=== PATIENT | male | born 1940 | race Caucasian/White ===

== ENCOUNTER 2016-03-16 09:29 | Outpatient (CLI) | payer MEDICARE ==
[2016-03-16 11:05] LABS: ALT (SGPT) 15 U/L (0-55); AST (SGOT) 17 U/L (5-34); Alkaline Phosphatase 30 U/L (40-150); Anion Gap 11 mmol/L (10-20); BUN (Urea Nitrogen) 14 mg/dL (8.4-25.7); Bilirubin, Total 1.1 mg/dL (0.2-1.2); Calc. Creatinine Clearance 0 mL/min (70-130); Calcium 9.6 mg/dL (7.8-10.44); Carbon Dioxide 30 mmol/L (23-31); Chloride 102 mmol/L (98-107); Estimated GFR-MDRD Greater than 90; Globulin 2.8 g/dL (2.4-3.5); LDL Cholesterol, Calculated 125 mg/dL; Protein, Total 7.3 g/dL (5.8-8.1)
[2016-03-16 11:08] LABS: #Basophils 0.1 thou/uL (0.0-0.2); #Eosinphils 0.1 thou/uL (0.0-0.7); #Lymphocytes 2.1 thou/uL (1.20-3.40); #Monocytes 0.6 thou/uL (0.11-0.59); #Neutrophils 4.1 thou/uL (1.40-6.50); %Basophils 0.9 % (0.0-1.0); %Eosinophils 2.1 % (0.0-10.0); %Monocytes 8.8 % (0.0-10.0); Hematocrit 47.3 % (42.0-52.0); Mean Platelet Volume 7.2 fL (7.4-10.4); Red Blood Cell (RBC) Count 5.03 mill/uL (4.70-6.10); White Blood Cell (WBC) Count 6.9 thou/uL (4.8-10.8)
== END 2016-03-16 09:30 | disposition home or self-care (01) ==
LOC: BURLAB 09:29
PROVIDERS: ATTEND Family Medicine
DX: E78.5 Hyperlipidemia, unspecified (principal); N40.0 Benign prostatic hyperplasia without lower urinary tract symptoms; J44.9 Chronic obstructive pulmonary disease, unspecified
CPT/HCPCS: 36415; 80053; 80061; 84153; 84443; 85025

== ENCOUNTER 2017-03-22 08:34 | Emergency (ER) | payer MEDICARE ==
[2017-03-22 09:48] LABS: #Basophils 0.1 thou/uL (0.0-0.2); #Monocytes 0.6 thou/uL (0.11-0.59); #Neutrophils 4.8 thou/uL (1.40-6.50); %Basophils 1.6 % (0.0-1.0); %Lymphocytes 23.7 % (21.0-51.0); %Neutrophils 55.7 % (42.0-75.0); Hemoglobin 16.5 g/dL (14.0-18.0); Mean Corpuscular HGB CONC 33.2 g/dL (32.0-36.0); Mean Corpuscular Hemoglobin 29.9 pg (27.0-31.0); Mean Corpuscular Volume 89.8 fl (80.0-94.0); Mean Platelet Volume 7.9 fL (7.4-10.4); Platelet Count 226 thou/uL (130-400); RBC Distribution Width 11.4 % (11.5-14.5); Red Blood Cell (RBC) Count 5.51 mill/uL (4.70-6.10); White Blood Cell (WBC) Count 8.6 thou/uL (4.8-10.8)
[2017-03-22 09:55] LABS: ALT (SGPT) 23 U/L (8-55); AST (SGOT) 23 U/L (5-34); Albumin 4.7 g/dL (3.4-4.8); Alkaline Phosphatase 35 U/L (40-150); Anion Gap 17 mmol/L (10-20); BUN (Urea Nitrogen) 18 mg/dL (8.4-25.7); Bilirubin, Total 0.9 mg/dL (0.2-1.2); Calc. Creatinine Clearance 0 mL/min (70-130); Calcium 9.7 mg/dL (7.8-10.44); Carbon Dioxide 26 mmol/L (23-31); Chloride 103 mmol/L (98-107); Estimated GFR-MDRD Greater than 90; Globulin 3.1 g/dL (2.4-3.5); Glucose 105 mg/dL (83-110); Potassium 4.2 mmol/L (3.5-5.1); Protein, Total 7.8 g/dL (5.8-8.1); Sodium 142 mmol/L (136-145)
[2017-03-22] MEDS ORDERED: Benzonatate 100 MG CAP ONE (10:18)
--- NOTE | 2017-03-22 19:14 | RAD ---
CHEST TWO VIEWS 03/22/17 Comparison is made with the 05/15/08 study. The heart is normal in size. There are no major lobar consolidations or effusions. There is a minimal amount of streaking near each hemidiaphragm, but I am not convinced of an acute infiltrate here at t his point. Nipple shadows are noted bilaterally. The trachea is midline and the mediastinum was unrem arkable. IMPRESSION: No definite acute finding. POS: [facility]
== END 2017-03-22 10:45 | disposition home or self-care (01) ==
LOC: BURERS 08:34
DX: J44.1 Chronic obstructive pulmonary disease with (acute) exacerbation (principal); Z87.891 Personal history of nicotine dependence
CPT/HCPCS: 71046; 80053; 85025; 94640; J7620

== ENCOUNTER 2017-09-26 12:59 | Emergency (ER) | payer MEDICARE ==
[2017-09-26 13:33] LABS: #Basophils 0.1 thou/uL (0.0-0.2); #Eosinphils 0.1 thou/uL (0.0-0.7); #Lymphocytes 1.6 thou/uL (1.20-3.40); #Monocytes 0.4 thou/uL (0.11-0.59); #Neutrophils 5.5 thou/uL (1.40-6.50); %Eosinophils 1.2 % (0.0-10.0); %Lymphocytes 21.2 % (21.0-51.0); %Neutrophils 71.6 % (42.0-75.0); Hemoglobin 14.3 g/dL (14.0-18.0); Mean Corpuscular HGB CONC 36.2 g/dL (32.0-36.0); Mean Corpuscular Hemoglobin 29.6 pg (27.0-31.0); Mean Corpuscular Volume 81.9 fL (78.0-98.0); Mean Platelet Volume 6.6 fL (7.4-10.4); Platelet Count 187 thou/uL (130-400); Red Blood Cell (RBC) Count 4.82 mill/uL (4.70-6.10); White Blood Cell (WBC) Count 7.6 thou/uL (4.8-10.8)
[2017-09-26 13:50] LABS: ALT (SGPT) 16 U/L (8-55); AST (SGOT) 19 U/L (5-34); Alkaline Phosphatase 26 U/L (40-150); Anion Gap 13 mmol/L (10-20); BUN (Urea Nitrogen) 24 mg/dL (8.4-25.7); Bilirubin, Total 1.1 mg/dL (0.2-1.2); Calc. Creatinine Clearance 0 mL/min (70-130); Calcium 9.1 mg/dL (7.8-10.44); Carbon Dioxide 28 mmol/L (23-31); Chloride 104 mmol/L (98-107); Estimated GFR-MDRD Greater than 90; Globulin 2.6 g/dL (2.4-3.5); Glucose 107 mg/dL (83-110); Lipase 34 U/L (8-78); Protein, Total 6.6 g/dL (5.8-8.1); Sodium 141 mmol/L (136-145)
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
== END 2017-09-26 13:53 | disposition home or self-care (01) ==
LOC: BURERS 12:59
DX: S16.1XXA Strain of muscle, fascia and tendon at neck level, initial encounter (principal); S20.212A Contusion of left front wall of thorax, initial encounter; S20.211A Contusion of right front wall of thorax, initial encounter; Z87.891 Personal history of nicotine dependence; V89.2XXA Person injured in unspecified motor-vehicle accident, traffic, initial encounter
CPT/HCPCS: 70450; 72125; 80053; 83690; 85025; G0390

== ENCOUNTER 2017-10-10 13:02 | Outpatient (CLI) | payer MEDICARE ==
--- NOTE | 2017-10-10 21:23 | RAD ---
CHEST: 10/10/2017 FINDINGS: Three views are submitted. The heart is normal in size. The mediastinum shows no widening or shift. There is faint calcification in the aortic arch. The lungs are fully inflated and clear. There is no sign of pneumothorax or pleural effusion. No fractures are appreciated. There has been no adver se change in the appearance of the chest since the prior exam of 03/22/2017. IMPRESSION: No acute thoracic findings. POS: [facility]
== END 2017-10-10 13:03 | disposition home or self-care (01) ==
LOC: BURRAD 13:02
PROVIDERS: ATTEND Nurse Practitioner
DX: S20.219D Contusion of unspecified front wall of thorax, subsequent encounter (principal)
CPT/HCPCS: 71046

== ENCOUNTER 2017-10-24 10:29 | Emergency (ER) | payer MEDICARE ==
[2017-10-24 11:20] LABS: #Basophils 0.2 thou/uL (0.0-0.2); #Lymphocytes 1.6 thou/uL (1.20-3.40); #Monocytes 0.6 thou/uL (0.11-0.59); #Neutrophils 6.1 thou/uL (1.40-6.50); %Basophils 1.7 % (0.0-1.0); %Eosinophils 10.4 % (0.0-10.0); %Lymphocytes 17.2 % (21.0-51.0); %Monocytes 6.6 % (0.0-10.0); %Neutrophils 64.1 % (42.0-75.0); Hemoglobin 15.8 g/dL (14.0-18.0); Mean Corpuscular HGB CONC 36.7 g/dL (32.0-36.0); Mean Corpuscular Hemoglobin 29.9 pg (27.0-31.0); Mean Corpuscular Volume 81.5 fL (78.0-98.0); Mean Platelet Volume 6.8 fL (7.4-10.4); Platelet Count 199 thou/uL (130-400); RBC Distribution Width 10.9 % (11.5-14.5); Red Blood Cell (RBC) Count 5.29 mill/uL (4.70-6.10); White Blood Cell (WBC) Count 9.4 thou/uL (4.8-10.8)
[2017-10-24 11:31] LABS: ALT (SGPT) 17 U/L (8-55); AST (SGOT) 22 U/L (5-34); Albumin 4.9 g/dL (3.4-4.8); Alkaline Phosphatase 55 U/L (40-150); Anion Gap 15 mmol/L (10-20); BUN (Urea Nitrogen) 18 mg/dL (8.4-25.7); Calc. Creatinine Clearance 0 mL/min (70-130); Calcium 10.1 mg/dL (7.8-10.44); Carbon Dioxide 29 mmol/L (23-31); Chloride 103 mmol/L (98-107); Estimated GFR-MDRD Greater than 90; Globulin 3.3 g/dL (2.4-3.5); Glucose 103 mg/dL (83-110); Potassium 3.9 mmol/L (3.5-5.1); Protein, Total 8.2 g/dL (5.8-8.1); Sodium 143 mmol/L (136-145)
[2017-10-24 11:34] LABS: Troponin I Less than 0.010 ng/mL (< 0.028)
[2017-10-24] MEDS ORDERED: methylPREDNISolone Sod Succ/PF 125 MG/2 ML VIAL ONE (12:07)
[2017-10-24] MEDS ORDERED: Benzonatate 100 MG CAP ONE (12:07)
--- NOTE | 2017-10-24 19:07 | RAD ---
PORTABLE CHEST: 10/24/17 An AP portable film at 1035 is compared with an 10/10/17 study. The heart is normal in size. The lungs are clear. No infiltrate or effusion was seen. there is no vas cular congestion or edema. IMPRESSION: No acute thoracic findings. POS: [facility]
== END 2017-10-24 12:31 | disposition home or self-care (01) ==
LOC: BURERS 10:29
DX: J44.1 Chronic obstructive pulmonary disease with (acute) exacerbation (principal); E78.5 Hyperlipidemia, unspecified; Z87.891 Personal history of nicotine dependence
CPT/HCPCS: 36415; 71045; 80053; 82553; 83880; 84484; 85025; 87040; 93005; 94640; J2930; J7620

== ENCOUNTER 2017-10-24 19:06 | Emergency (ER) | payer MEDICARE ==
[2017-10-24 19:58] LABS: Hemoglobin 15.1 g/dL (14.0-18.0); Red Blood Cell (RBC) Count 4.99 mill/uL (4.70-6.10); White Blood Cell (WBC) Count 5.8 thou/uL (4.8-10.8)
[2017-10-24 19:59] LABS: %Basophils 0.3 % (0.0-1.0); %Eosinophils 0.2 % (0.0-10.0); %Lymphocytes 13.1 % (21.0-51.0); %Monocytes 1.4 % (0.0-10.0); %Neutrophils 84.9 % (42.0-75.0); Manual Diff?? YES; Mean Corpuscular HGB CONC 37.4 g/dL (32.0-36.0); Mean Corpuscular Hemoglobin 30.3 pg (27.0-31.0); Mean Platelet Volume 6.4 fL (7.4-10.4); Platelet Count 200 thou/uL (130-400); RBC Distribution Width 10.8 % (11.5-14.5)
[2017-10-24 20:00] LABS: #Lymphocytes 0.8 thou/uL (1.20-3.40); #Monocytes 0.1 thou/uL (0.11-0.59); #Neutrophils 4.9 thou/uL (1.40-6.50); MDiff Complete? YES
[2017-10-24 20:13] LABS: ALT (SGPT) 15 U/L (8-55); AST (SGOT) 17 U/L (5-34); Albumin 4.7 g/dL (3.4-4.8); Alkaline Phosphatase 53 U/L (40-150); Anion Gap 14 mmol/L (10-20); BUN (Urea Nitrogen) 19 mg/dL (8.4-25.7); Calc. Creatinine Clearance 0 mL/min (70-130); Carbon Dioxide 27 mmol/L (23-31); Chloride 103 mmol/L (98-107); Estimated GFR-MDRD Greater than 90; Globulin 3.1 g/dL (2.4-3.5); Glucose 203 mg/dL (83-110); Potassium 3.7 mmol/L (3.5-5.1); Protein, Total 7.8 g/dL (5.8-8.1); Sodium 140 mmol/L (136-145)
[2017-10-24 20:15] LABS: CKMB 0.9 ng/mL (0-6.6); Troponin I Less than 0.010 ng/mL (< 0.028)
[2017-10-24] MEDS ORDERED: hydrOXYzine 25 MG TAB ONE (20:47)
== END 2017-10-24 21:51 | disposition home or self-care (01) ==
LOC: BURERS 19:06
DX: J44.1 Chronic obstructive pulmonary disease with (acute) exacerbation (principal); E78.5 Hyperlipidemia, unspecified; Z87.891 Personal history of nicotine dependence; Z79.899 Other long term (current) drug therapy; Z79.82 Long term (current) use of aspirin
CPT/HCPCS: 36415; 71045; 80053; 82553; 83880; 84484; 85025; 85379; 87040; 93005; 94640; 96374; J2930; J7620

== ENCOUNTER 2017-12-12 12:35 | Outpatient (CLI) | payer MEDICARE ==
--- NOTE | 2017-12-13 07:52 | RAD ---
LEFT KNEE THREE VIEWS: 12/12/17 No acute fracture was seen. There may be slight medial joint space narrowing and there is some very f aint meniscal calcification. Popliteal artery calcification is present. No large joint effusion was s een. IMPRESSION: No acute bony finding. POS: [facility]
== END 2017-12-12 12:36 | disposition home or self-care (01) ==
LOC: BURRAD 12:35
PROVIDERS: ATTEND Nurse Practitioner
DX: M25.562 Pain in left knee (principal)

== ENCOUNTER 2017-12-22 21:45 | Emergency (ER) | payer MEDICARE ==
[2017-12-22] MEDS ORDERED: Ondansetron HCl/PF 4 MG/2 ML Vial ONE (22:08)
--- NOTE | 2017-12-22 22:34 | RAD ---
CHEST ONE VIEW: 12/22/17 INDICATION: History of chest pain. COMPARISON: Prior exam dated 10/24/17 and 11/29/17. FINDINGS: Chronic lung changes are similar. Heart size is accentuated by the exam technique. No definite acute osseous abnormality is evident. IMPRESSION: No definite acute abnormality. POS: [facility]
== END 2017-12-22 23:40 | disposition short-term general hospital (02) ==
LOC: BURERS 21:45
DX: T17.920A Food in respiratory tract, part unspecified causing asphyxiation, initial encounter (principal); F03.90 Unspecified dementia, unspecified severity, without behavioral disturbance, psychotic disturbance, mood disturbance, and anxiety; J44.9 Chronic obstructive pulmonary disease, unspecified; E78.5 Hyperlipidemia, unspecified; F32.9 Major depressive disorder, single episode, unspecified; Z87.891 Personal history of nicotine dependence; Z79.899 Other long term (current) drug therapy; Z79.82 Long term (current) use of aspirin
CPT/HCPCS: 71045; J1610; 96374; 96375; J2405

== ENCOUNTER 2019-03-14 14:23 | Outpatient (CLI) | payer MEDICARE ==
--- NOTE | 2019-03-14 19:09 | RAD ---
CHEST TWO VIEWS 03/14/19 Comparison is made with the 12/22/17 study. The heart is normal in size. There is no vascular congestion, edema, or pleural effusions. Faint calc ification is present in the aortic arch. No focal infiltrate was seen to suggest pneumonia. Overall, there has been little change since the prior exam. IMPRESSION: No acute finding. POS: [facility]
== END 2019-03-14 14:24 | disposition home or self-care (01) ==
LOC: BURRAD 14:23
PROVIDERS: ATTEND Nurse Practitioner
DX: J69.0 Pneumonitis due to inhalation of food and vomit (principal)
CPT/HCPCS: 71046

== ENCOUNTER 2022-04-07 14:50 | Emergency (ER) | payer MEDICARE ==
[2022-04-07] MEDS ORDERED: Ketorolac Tromethamine 30 MG/ML VIAL ONE (15:07)
[2022-04-07 15:25] LABS: #Basophils 0.1 thou/uL (0.0-0.2); #Eosinphils 0.1 thou/uL (0.0-0.7); #Lymphocytes 2.2 thou/uL (1.20-3.40); #Monocytes 0.7 thou/uL (0.11-0.59); #Neutrophils 5.4 thou/uL (1.40-6.50); %Basophils 0.8 % (0.0-1.0); %Eosinophils 1.2 % (0.0-10.0); %Monocytes 8.2 % (0.0-10.0); %Neutrophils 63.7 % (42.0-75.0); Hemoglobin 11.6 g/dL (14.0-18.0); Mean Corpuscular HGB CONC 33.9 g/dL (32.0-36.0); Mean Corpuscular Hemoglobin 31.1 pg (27.0-31.0); Mean Corpuscular Volume 91.7 fl (78.0-98.0); Mean Platelet Volume 6.9 fL (7.4-10.4); Platelet Count 290 10x3/uL (130-400); RBC Distribution Width 12.3 % (11.5-14.5); Red Blood Cell (RBC) Count 3.72 mill/uL (4.70-6.10); White Blood Cell (WBC) Count 8.4 10x3/uL (4.8-10.8)
[2022-04-07 15:40] LABS: Anion Gap 17 mmol/L (10-20); BUN (Urea Nitrogen) 28 mg/dL (8.4-25.7); Calc. Creatinine Clearance 0 mL/min (70-130); Calcium 9.7 mg/dL (7.8-10.44); Carbon Dioxide 29 mmol/L (23-31); Chloride 105 mmol/L (98-107); Estimated GFR 93; Glucose 105 mg/dL (83-110); Potassium 4.2 mmol/L (3.5-5.1); Sodium 147 mmol/L (136-145)
[2022-04-07] MEDS ORDERED: HYDROmorphone 0.5 MG/0.5 ML SYRINGE ONE (16:21)
== END 2022-04-07 17:05 | disposition short-term general hospital (02) ==
LOC: BURERS 14:50
DX: S72.141A Displaced intertrochanteric fracture of right femur, initial encounter for closed fracture (principal); E78.00 Pure hypercholesterolemia, unspecified; J44.9 Chronic obstructive pulmonary disease, unspecified; Z87.891 Personal history of nicotine dependence; Z79.899 Other long term (current) drug therapy; W19.XXXA Unspecified fall, initial encounter
CPT/HCPCS: 36415; 71045; 72170; 80048; 85025; 96374; 96375; J1170; J1885